=== PATIENT | female | born 1960 | race Caucasian/White ===

== ENCOUNTER 2017-06-10 06:06 | Outpatient (CLI) | payer MEDICARE, OTHER ==
[~2017-06-10] VITALS: Ht 172.7 cm; Wt 65.3 kg
[~2017-06-10 06:06] MED LIST: ALBU17AE23 IH; CEPH250T PO; CLIN300C3 PO; DIAZ10TA PO; FLUD0.1T7 PO; HYDR-3714 PO; MELO-195 PO; OMEP20CA6 PO; ONDAN4ODT PO; OXYC-12 PO; PARO20TA57 PO
[2017-06-10] MEDS ORDERED: PHEN-639 PO (14:26)
[2017-06-10] MEDS ORDERED: HYDR-3820 PO (14:26)
[2017-06-11] MEDS ORDERED: OMEP20CA12 PO (12:30)
== END 2017-06-10 14:52 ==
LOC: PREOP 06:06
PROVIDERS: ATTEND Internal Medicine
DX: Z01.818 Encounter for other preprocedural examination (principal); R13.10 Dysphagia, unspecified

== ENCOUNTER 2017-06-11 09:21 | Day surgery (SDC) | payer MEDICARE, OTHER ==
--- NOTE | 2017-06-09 19:29 | HISTORY AND PHYSICAL ---
DATE OF SERVICE: EGD HISTORY AND PHYSICAL HISTORY OF PRESENT ILLNESS: The patient is a 56-year-old white female seen on 06/09/2017 for evaluation of multiple medical issues. She reports that she has been having dysphagia pointing to the lower precordial area where predominantly solids get stuck. She has associated odynophagia with this and is not having difficulty with liquids. She takes an occasional ibuprofen for CMC arthritis, right worse than left and has also noted some right shoulder pain without any antecedent trauma. She denies weight loss and has noted no melena or bright red blood per rectum. She does have bowel urgency with no recent episodes of incontinence with no long-standing irritable bowel syndrome. Her right shoulder has been bothering her for a little over 2 weeks without any known trauma. It is worse with arm abduction and internal rotation. She reports that she has significant difficulty using her right hand for several days at a time for flare of pain at the level of the CMC joint. She has known osteoarthritis at this location. PHYSICAL EXAMINATION: GENERAL: Reveals a well kempt white female, who did not appear to be in acute distress. VITAL SIGNS: Her blood pressure was 100/56, which is her norm; weight was up 2.2 pounds, 149.2. CHEST: Clear. CARDIOVASCULAR: Revealed a regular rate and rhythm without murmur, S3 or S4. MUSCULOSKELETAL: She has no evidence for right shoulder swelling. There is some mild subdeltoid pain to palpation. No erythema or warmth noted. She has pain when she gets to 80 degrees of arm abduction on the right and with minimal internal rotation, she has discomfort as well. She has crepitus and some swelling over the right CMC and to a lesser extent the left. There is no evidence for effusion or erythema. No other areas of tender joints are noted on hand or wrist evaluation. ABDOMEN: Soft, supple without mass, organomegaly or tenderness. EXTREMITIES: Reveal no cyanosis, clubbing or edema. ASSESSMENT AND PLAN: 1. For further evaluation of dysphagia, she was set up for EGD evaluation this Wednesday. 2. Right rotator cuff tendinitis, most likely. 3. Right CMC arthritis, significantly limiting activities. Tylenol for now recommended and referral to Dr. Gorman for this as well as her rotator cuff tendinitis versus small tear. These issues were discussed with the patient in evaluation and answering her questions, 25 minutes [id number] care time spent today. This did not include the staff time, an extra 10 to 15 minutes setting up EGD for this Wednesday. Job ID: [id number] DocumentID: [id number] Dictated Date: 06/09/2017 17:38:20 Animal Treatment Investigator Date: 06/09/2017 18:10:03 Dictated By: ADE ARVIZU MD
[~2017-06-11] VITALS: Ht 172.7 cm; Wt 65.3 kg
[~2017-06-11 09:21] MED LIST changes: +HYDR-3820 PO; +PHEN-639 PO
[2017-06-11] MEDS ORDERED: LACTATED RINGERS 1,000 ML IV STA (09:44)
[2017-06-11] MEDS ORDERED: HURRICAINE EXT TUBE (BENZOCAINE) XX PRN (09:45)
[2017-06-11] MEDS ORDERED: LIDOCAINE JELLY 2% (XYLOCAINE) 5 ML TUBE MM PRN (09:45)
[2017-06-11] MEDS ORDERED: LACTATED RINGERS 1,000 ML IV ONE ×2 (09:57→09:59)
[2017-06-11] MEDS ORDERED: D5 LR IV SOLUTION 1,000 ML IV SCH (10:00)
--- OUTSIDE RECORDS SUMMARY | 2017-06-11 10:03 | XMS REPORT | Continuity of Care Document ---
Author Author [facility] Organization [facility] Address Unknown Phone Unavailable Allergies Active Description Code Type Severity Reaction Onset Reported/Identified Relationship to Patient Clinical Status Yes aspirin [id number] Drug Allergy Mild N/A 07/06/2009 Yes [id number] (SULFA (SULFONAMIDE ANTIBIOTICS)) [id number] (SULFA (SULFONAMIDE ANTIBIOTICS)) Mild N/A 07/06/2009 Yes Penicillins [id number] Drug Allergy Mild N/A 07/06/2009 Yes pseudoephedrine [id number] Drug Allergy Mild N/A 07/06/2009 Medications There is no data. Problems Date Dx Coded Attending Type Code Diagnosis Diagnosed By 12/27/2010 Ot 873.42 12/27/2010 Ot E000.8 12/27/2010 Ot E849.6 12/27/2010 Ot E917.9 11/05/2012 TANNA MADSEN DO Ot 682.9 CELLULITIS NOS 11/05/2012 TANNA MADSEN DO Ot 729.5 PAIN IN LIMB 08/30/2014 Ot 780.2 08/30/2014 Ot 786.50 08/30/2014 Ot 496 08/30/2014 ADE ARVIZU MD Ot V76.12 09/26/2014 ADE ARVIZU MD Ot V76.12 01/15/2017 ADE ARVIZU MD Ot V76.12 OTH SCREEN MAMMO-MALIGN NEOPLASM OF PORSCHE 01/15/2017 ADE ARVIZU MD Ot V76.12 OTH SCREEN MAMMO-MALIGN NEOPLASM OF PORSCHE 02/08/2017 ADE ARVIZU MD Ot G40.909 EPILEPSY, UNSP, NOT INTRACTABLE, WITHOUT 02/08/2017 ADE ARVIZU MD Ot Z85.41 PERSONAL HISTORY OF MALIGNANT NEOPLASM O 02/08/2017 ADE ARVIZU MD Ot Z85.42 PERSONAL HISTORY OF MALIGNANT NEOPLASM O 02/08/2017 ADE ARVIZU MD Ot Z85.43 PERSONAL HISTORY OF MALIGNANT NEOPLASM O Procedures There is no data. Results There is no data. Encounters ACCT No. Visit Date/Time Discharge Status Pt. Type Provider Facility Loc./Unit Complaint [id number] 01/15/2017 14:34:00 01/15/2017 23:59:59 CLS Outpatient ADE ARVIZU MD [facility] RAD GENERALIZED SEIZURE [id number] 08/30/2014 13:34:00 08/30/2014 23:59:59 CLS Outpatient ADE ARVIZU MD [facility] RAD SCREENING [id number] 07/13/2013 11:26:00 07/13/2013 23:59:59 CLS Outpatient ADE ARVIZU MD [facility] RAD SCREENING [id number] 11/04/2012 21:12:00 11/05/2012 01:39:00 DIS Emergency TANNA MADSEN DO [facility] ER RT ARM PAIN,SWELLING [id number] 06/11/2017 10:45:00 PEN Preadmit ADE ARVIZU MD [facility] ENDO DYSPHAGIA [id number] 06/10/2017 06:06:00 ACT Outpatient ADE ARVIZU MD [facility] PREOP EGD [id number] 08/30/2014 13:33:00 Document Registration [id number] 08/30/2014 13:33:00 Document Registration [id number] 12/27/2010 00:25:00 Document Registration [id number] 08/28/2009 07:55:00 Document Registration [email or web address] 08/30/2014 13:34:42 ACT Document Registration
[2017-06-11] MEDS ORDERED: MIDAZOLAM 2 MG/2 ML (VERSED) VIAL ONE (11:10)
[2017-06-11] MEDS ORDERED: proPOfol 200 MG/20 ML (DIPRIVAN) VIAL IV ONE (11:10)
[2017-06-11] MEDS ORDERED: LIDOCAINE JELLY 2% (XYLOCAINE) 5 ML TUBE ONE (11:21)
[2017-06-11] MEDS ORDERED: HURRICAINE EXT TUBE (BENZOCAINE) ONE (11:38)
[2017-06-11 12:00] VITALS: BP 85/56
--- NOTE | 2017-06-11 12:10 | Pre-Op Note & Conscious Sedat ---
Pre-Operative Progress Note H&P Reviewed The H&P was reviewed, patient examined and no changes noted. Date H&P Reviewed: Jun 11, 2017 Time H&P Reviewed: 11:00 Conscious Sedation Pre-Proced ASA Class: 2 Airway Mallampati Classification: ([place] appropriate class) I. II. III, IV Lungs Heart ASA score ASA 1: a normal healthy patient ASA 2: a patient with a mild systemic disease (mid diabetes, controlled hypertension, obesity ASA 3: a patient with a severe systemic disease that limits activity (angina , COPD, prior Myocardial infarction) ASA 4: a patient with an incapacitating disease that is a constant threat to life (CHF, renal failure) ASA 5: a moribund patient not expected to survive 24 hrs. (ruptured aneurysm) ASA 6: a declared brain patient whose organs are being harvested. For emergent operations, add the letter E after the classification Grade 2 Sedation Plan: Analgesia, Amnesia, Plan communicated to team members, Discussed options with patient/fam, Discussed risks with patient/fam Note The patient is an appropriate candidate to undergo the planned procedure, sedation, and anesthesia. The patient immediately re-assessed prior to indication. ADE ARVIZU MD Jun 11, 2017 12:10
[2017-06-11] MEDS ORDERED: OMEP20CA12 PO (12:30)
[2017-06-11 12:35] VITALS: BP 112/67
[2017-06-11 12:37] VITALS: BP 112/67
--- NOTE | 2017-06-11 13:52 | Anesthesia-General Post-Op ---
MAC Patient Condition Mental Status/LOC: Same as Preop Cardiovascular: Satisfactory Nausea/Vomiting: Absent Respiratory: Satisfactory Pain: Controlled Complications: Absent Post Op Complications Complications None Follow Up Care/Instructions Patient Instructions None needed. Anesthesiology Discharge Order Discharge Order Patient is doing well, no complaints, stable vital signs, no apparent adverse anesthesia problems. No complications reported per nursing. NAYELI KOWALSKI CRNA Jun 11, 2017 13:52
--- NOTE | 2017-06-11 15:20 | OPERATIVE REPORT ---
DATE OF SERVICE: 06/11/2017 ESOPHAGOGASTRODUODENOSCOPY SUMMARY DESCRIPTION OF PROCEDURE: The patient was placed in left lateral decubitus position. The endoscope was inserted in the oral cavity and under direct visualization the esophagus was intubated. The endoscope was passed down the esophagus through the stomach and second portion of the duodenum. Careful inspection was made as the endoscope was withdrawn. The patient did require Diprivan due to significant history of anxiety and reports of hyperactive gag reflex. FINDINGS: The posterior pharynx, arytenoid aperture and true and false vocal folds were unremarkable. No erythema was noted. The proximal and mid esophagus were unremarkable. There was evidence for a large hiatal hernia with one shallow ulceration noted at the Z line involving about 15% of the circumference. A biopsy was obtained. No overt evidence to suggest Knight's change and no stricturing was noted. The cardia, fundus, antrum, pylorus, pyloric channel, duodenal bulb and second portion of duodenum were unremarkable. ASSESSMENT: Wayne grade A erosive esophagitis was present with a large hiatal hernia. No other abnormalities were noted. We will initiate omeprazole 20 mg p.o. daily and I will have her keep her regular office followup appointment in several months. Job ID: [id number] DocumentID: [id number] Dictated Date: 06/11/2017 12:23:01 Display Director Date: 06/11/2017 15:20:10 Dictated By: ADE ARVIZU MD
== END 2017-06-11 12:38 | disposition home or self-care (01) ==
LOC: ENDO 09:21
PROVIDERS: ATTEND Internal Medicine
DX: K20.8 Other esophagitis (principal); K44.9 Diaphragmatic hernia without obstruction or gangrene; J44.9 Chronic obstructive pulmonary disease, unspecified; J45.909 Unspecified asthma, uncomplicated; Z72.0 Tobacco use

== ENCOUNTER → 2017-09-10 | Outpatient (CLI) | payer MEDICARE, OTHER ==
[~2017-09-10] MED LIST changes: +OMEP20CA12 PO
--- NOTE | 2017-09-10 11:40 | Diagnostic Imaging Report ---
INDICATION: Pain. 3 views were obtained FINDINGS: There is an oblique fracture through the proximal phalanx of the right fifth toe. There is no other fracture or dislocation. Soft tissues are unremarkable. IMPRESSION: Oblique fracture of the proximal phalanx of the right fifth toe with minimal displacement. Dictated by: Dictated on workstation # [id number]
== END ==
LOC: RAD 10:32
PROVIDERS: ATTEND Internal Medicine
DX: S92.911A Unspecified fracture of right toe(s), initial encounter for closed fracture (principal)
CPT/HCPCS: 73630

== ENCOUNTER → 2018-01-06 | Outpatient (CLI) | payer MEDICARE, OTHER ==
[2018-01-06 14:17] LABS: BASOPHILS % (AUTO) 0 % (0-10); EOSINOPHILS # (AUTO) 0.1 10^3/uL (0.0-0.3); EOSINOPHILS % (AUTO) 2 % (0-10); HEMATOCRIT 38 % (35-52); HEMOGLOBIN 13.1 G/DL (11.5-16.0); LYMPHOCYTES # (AUTO) 2.3 X 10^3 (1.0-4.0); LYMPHOCYTES % (AUTO) 48 % (12-44); MEAN CORPUSCULAR HEMOGLOBIN 32 PG (25-34); MEAN CORPUSCULAR HGB CONC 35 G/DL (32-36); MEAN CORPUSCULAR VOLUME 91 FL (80-99); MEAN PLATELET VOLUME 8.7 FL (7.4-10.4); MONOCYTES # (AUTO) 0.3 X 10^3 (0.0-1.0); MONOCYTES % (AUTO) 7 % (0-12); NEUTROPHILS % (AUTO) 43 % (42-75); PLATELET COUNT 193 10^3/uL (130-400); RED BLOOD COUNT 4.15 10^6/uL (4.35-5.85); RED CELL DISTRIBUTION WIDTH 12.9 % (10.0-14.5); WHITE BLOOD COUNT 4.7 10^3/uL (4.3-11.0)
[2018-01-06 14:45] LABS: ALANINE AMINOTRANSFERASE 13 U/L (0-55); ALBUMIN 4.3 GM/DL (3.2-4.5); ALKALINE PHOSPHATASE 61 U/L (40-136); BILIRUBIN,TOTAL 0.5 MG/DL (0.1-1.0); BUN/CREATININE RATIO 19; CALCIUM 8.9 MG/DL (8.5-10.1); CARBON DIOXIDE 25 MMOL/L (21-32); CHLORIDE 108 MMOL/L (98-107); CREATININE SERUM 0.84 MG/DL (0.60-1.30); GFR ESTIMATED > 60; GLUCOSE 89 MG/DL (70-105); POTASSIUM 4.1 MMOL/L (3.6-5.0); SODIUM 140 MMOL/L (135-145); TOTAL PROTEIN 6.9 GM/DL (6.4-8.2)
--- NOTE | 2018-01-06 18:09 | Diagnostic Imaging Report ---
INDICATION: Chest heaviness and shortness of breath. TIME OF EXAM: 03:13 p.m. COMPARISON: Comparison is made with prior chest from 12/17/2009. FINDINGS: The lungs are hyperinflated consistent with COPD. The heart size is normal. No infiltrate, effusion, or pneumothorax is identified. IMPRESSION: COPD. No acute abnormality is detected. Dictated by: Dictated on workstation # [id number]
== END ==
LOC: RAD 13:52
PROVIDERS: ATTEND Internal Medicine
DX: J44.9 Chronic obstructive pulmonary disease, unspecified (principal); R07.89 Other chest pain; R05 Cough; R04.2 Hemoptysis
CPT/HCPCS: 36415; 71046; 80053; 85025; 85379

== ENCOUNTER → 2018-03-09 | Outpatient (CLI) | payer MEDICARE, OTHER | LOC: LAB 14:10 | PROVIDERS: ATTEND Internal Medicine | DX: M79.89 Other specified soft tissue disorders (principal); Z86.718 Personal history of other venous thrombosis and embolism | CPT/HCPCS: 36415; 85379 ==

== ENCOUNTER → 2019-07-24 | Outpatient (CLI) | payer MEDICARE, OTHER ==
[~2019-07-24] VITALS: Ht 175 cm; Wt 67.0 kg
[~2019-07-24] MED LIST changes: +ACHYD1T PO; +CATHETER FLUSH 10 ML SYR IV PRN; -HYDR-3820 PO; -OMEP20CA12 PO; +OMEP20CA18 PO
[2019-07-24 09:29] VITALS: BP 152/70
[2019-07-24 09:48] VITALS: BP 142/89
--- NOTE | 2019-07-24 14:15 | STRESS TEST ---
DATE OF SERVICE: 07/24/2019 EXERCISE MYOVIEW STRESS TEST REPORT REFERRING PHYSICIAN: Dr. Rishi Arthur. Baseline heart rate is 52. Baseline blood pressure 152/70. Baseline EKG is sinus rhythm with no ischemic changes. In summary, the patient was injected with 10.11 mCi of technetium-99 Myoview and the resting images were obtained. Then, the patient started exercising with a baseline heart rate, blood pressure and EKG mentioned above. The patient was able to exercise for 10 minutes 45 seconds on standard Niall protocol. With peak exercise level, EKG was showing minimal nondiagnostic changes. Blood pressure was 207/88. During recovery, heart rate and blood pressure returned to baseline. EKG returned to baseline. The resting and stress images were reviewed and compared in the short axis, horizontal long axis, and vertical long axis views. Review of the images showed good radiotracer uptake with no significant ischemia or infarction. SSS is 2, SDS 2, TID value of 1.1. On the gated images, the left ventricle appeared to be normal size with normal contractility. Calculated ejection fraction 69%. CONCLUSION: 1. The patient was able to exercise for 10 minutes 45 seconds on standard Niall protocol, total of 12.1 METS achieving 88% of maximum expected heart rate. 2. Hypertensive response to exercise with peak blood pressure 207/88 returned to baseline during recovery. 3. Minimal nondiagnostic EKG changes with exercise returned to baseline during recovery. 4. No ischemia or infarction on SPECT images. 5. Normal left ventricular size with normal contractility. Calculated ejection fraction 69%. Job ID: [id number] DocumentID: [id number] Dictated Date: 07/24/2019 11:45:59 Insurance Agency Owner Date: 07/24/2019 14:14:23 Dictated By: GERRI ISIDRO MD
== END ==
LOC: CARD 07:58
PROVIDERS: ATTEND Internal Medicine Cardiovascular Disease
DX: I10 Essential (primary) hypertension (principal); R00.2 Palpitations; R07.9 Chest pain, unspecified; Z72.0 Tobacco use
CPT/HCPCS: 78452; 93017

== ENCOUNTER → 2019-07-25 | Outpatient (CLI) | payer MEDICARE, OTHER ==
[~2019-07-25] MED LIST changes: -CATHETER FLUSH 10 ML SYR IV PRN
== END ==
LOC: CARD 12:13
PROVIDERS: ATTEND Internal Medicine Cardiovascular Disease
DX: I10 Essential (primary) hypertension (principal); R00.2 Palpitations; R07.9 Chest pain, unspecified; Z72.0 Tobacco use
CPT/HCPCS: 93306

== ENCOUNTER → 2019-08-03 | Outpatient (CLI) | payer MEDICARE, OTHER ==
--- NOTE | 2019-08-02 13:07 | NUR ---
PT SCHEDULED FOR PFT; LOOKED UP FILE TO SEE IF ALTERNATIVE NUMBER TO CONTACT PT TO SCREEN COVID QUESTIONS AND TO REMIND OF APPOINTMENT.
[~2019-08-03] MED LIST changes: +RT-ALBUTEROL SULF 2.5 MG/3 ML PRE-MIX VIAL INH ONE; +RT-ALBUTEROL SULF 2.5 MG/3 ML PRE-MIX VIAL ONE
== END ==
LOC: RT 12:39
PROVIDERS: ATTEND Internal Medicine
DX: R06.02 Shortness of breath (principal)
CPT/HCPCS: 94060; 94726; 94729

== ENCOUNTER → 2020-05-02 | Outpatient (CLI) | payer MEDICARE, OTHER ==
[~2020-05-02] MED LIST changes: -RT-ALBUTEROL SULF 2.5 MG/3 ML PRE-MIX VIAL INH ONE; -RT-ALBUTEROL SULF 2.5 MG/3 ML PRE-MIX VIAL ONE
== END ==
LOC: LABNPT 09:42
PROVIDERS: ATTEND Internal Medicine
DX: Z20.822 Contact with and (suspected) exposure to COVID-19 (principal)
CPT/HCPCS: 87635

== ENCOUNTER → 2020-06-18 | Outpatient (CLI) | payer MEDICARE, OTHER | LOC: LABNPT 06:53 | PROVIDERS: ATTEND Internal Medicine | DX: Z20.822 Contact with and (suspected) exposure to COVID-19 (principal) | CPT/HCPCS: 87635 ==

== ENCOUNTER → 2020-06-19 | Outpatient (CLI) | payer MEDICARE, OTHER ==
--- NOTE | 2020-06-19 12:39 | Diagnostic Imaging Report ---
INDICATION: Cough, fatigue. COMPARISON: 01/06/2018. FINDINGS: Frontal and lateral views of the chest demonstrate normal heart size and pulmonary vascularity. The lungs are clear. There are no signs of infiltrate, pleural effusions or pneumothoraces. The visualized osseous structures show no acute abnormalities. IMPRESSION: 1. No acute process. No signs of infiltrates, effusions or pneumothoraces. Dictated by: Dictated on workstation # [id number]
== END ==
LOC: RAD 12:18
PROVIDERS: ATTEND Nurse Practitioner Family
DX: R05 Cough (principal); R53.83 Other fatigue
CPT/HCPCS: 71046

== ENCOUNTER 2020-09-01 15:10 | Emergency (ER) | payer MEDICARE, OTHER ==
[~2020-09-01] VITALS: Ht 173 cm; Wt 63.6 kg
--- NOTE | 2020-09-01 15:44 | ED Integumentary General ---
General Chief Complaint: Skin/Wound Problems Stated Complaint: TICK BITE Nursing Triage Note: Reports having a 'tick' on her on 08/30 [address]. feels she was able to get the tick out but the area has not stopped hurting. Source: patient Exam Limitations: no limitations History of Present Illness Date Seen by Provider: Sep 01, 2020 Time Seen by Provider: 15:25 Initial Comments Patient is a 59-year-old female who presents to the emergency department today with a chief complaint of posterior neck pain, muscle spasms just inferior to the area of a tick bite in her posterior scalp. Patient states that she felt a tick bite her on Wednesday, 08/30. She states that she was unable to identify the tick after pulling it off. She states progressively after that days she has had a little bit of generalized malaise and some body aches. She states specifically she has some neck pain when turning her head. She just does not feel quite right. She denies any fevers or rashes. No nausea or vomiting. She has chronic diarrhea. Patient was concerned that the area needed incised and drained or otherwise addressed. All other review of systems reviewed and negative except as stated above. Timing/Duration: other (2 days ago) Severity: moderate Location: scalp Possible Cause: insect bite (Tick bite) Associated Symptoms: other (Mild generalized malaise, body aches) Allergies and Home Medications Allergies Coded Allergies: Penicillins (Unverified Allergy, Mild, 07/06/09) Sulfa (Sulfonamide Antibiotics) (Verified Allergy, Mild, 06/10/17) aspirin (Unverified Allergy, Mild, 07/06/09) pseudoephedrine (Unverified Allergy, Mild, 07/06/09) Home Medications Doxycycline Hyclate 100 Mg Tablet.dr, 100 MG PO BID Prescribed by: BETO PABLO on 09/01/20 1546 Hydrocodone Bit/Acetaminophen 1 Each Tablet, 1 EACH PO PRN, (Reported) Omeprazole 20 Mg Capsule.dr, 20 MG PO DAILY Prescribed by: ADE ARVIZU on 06/11/17 1230 Phenazopyridine HCl 100 Mg Tablet, 100 MG PO PRN, (Reported) Patient Home Medication List Home Medication List Reviewed: Yes Review of Systems Review of Systems Constitutional: see HPI EENTM: no symptoms reported Respiratory: no symptoms reported Cardiovascular: no symptoms reported Gastrointestinal: no symptoms reported Genitourinary: no symptoms reported Musculoskeletal: joint pain Skin: other (Raised area in the posterior scalp that feels a little "lumpy") All Other Systems Reviewed Negative Unless Noted: Yes Past Ztavhlm-Zqqnln-Qaadnk Hx Patient Social History Alcohol Use: Denies Use Drug of Choice: THC Type Used: Cigarettes Recent Infectious Disease Expo: No Recent Hopitalizations: No Seasonal Allergies Seasonal Allergies: No Past Medical History Surgeries: Yes (SKIN CANCER REMOVAL, 50 OR MORE SURGERIES/PROCEDURES) Respiratory: Yes Asthma, Pulmonary Embolism, COPD Cardiac: Yes (HAS CODED 3 TIMES OR MORE, HYPOTENSION) Neurological: Yes Reproductive Disorders: No Sexually Transmitted Disease: No HIV/AIDS: No Gastrointestinal: Yes Gastroesophageal Reflux, Chronic Constipation, Irritable Bowel Musculoskeletal: Yes (CHRONIC GENERALIZED PAIN) Endocrine: Yes Adrenal Disease, Lupus Cancer: Yes ([employer] [place] --S/P SURGERY, CHEMO AND RADIATION 1982) Skin, Cervical, Ovarian, Uterine, Vaginal Psychosocial: Yes (SEVERE FROM MEDICAL ISSUES) Sleep Difficulties, Anxiety, PTSD, Depression Integumentary: Yes (CHRONIC SORES ALL OVER BODY. ) Blood Disorders: Yes Adverse Reaction/Blood Tranf: No Physical Exam Vital Signs Vital Signs - First Documented 09/01/20 15:22 Temp 37.0 Pulse 68 Resp 18 B/P (MAP) 131/73 (92) Pulse Ox 98 O2 Delivery Simple Mask Capillary Refill : Less Than 3 Seconds General Appearance: WD/WN, no apparent distress HEENT: PERRL/EOMI Neck: full range of motion, supple, normal inspection Cardiovascular: regular rate, rhythm Respiratory: lungs clear, normal breath sounds, no respiratory distress Gastrointestinal: non tender, soft Extremities: normal range of motion, non-tender Neurologic/Psychiatric: alert, normal mood/affect, oriented x 3 Skin: normal color, warm/dry Skin Problem Character: other (Palpable raised lesion to the right posterior occipital scalp, nonfluctuant but does feel slightly nodular to palpation. No drainage is noted. There is some slight darkish discoloration to the scalp at the area of the tick bite) Progress/Results/Core Measures Results/Orders My Orders Orders - BETO PABLO MD Tick Panel With Lyme Eia (09/01/20 15:38) Vital Signs/I&O 09/01/20 15:22 Temp 37.0 Pulse 68 Resp 18 B/P (MAP) 131/73 (92) Pulse Ox 98 O2 Delivery Simple Mask Blood Pressure Mean: 92 Progress Progress Note : Time: 15:43 Progress Note Discussed with the patient getting a tick panel today and starting her on doxycycline. Pending tick panel the patient can then discontinue the antibiotics if her tick panel is negative. I recommended supportive care with NSAIDs, washing the area frequently and continued monitoring of symptoms. The patient verbalized understanding. All questions are sought and answered. The patient is nontoxic in appearance, looks well. She is stable for discharge. Departure Impression Primary Impression: Tick bite Qualified Codes: W57.XXXA - Bitten or stung by nonvenomous insect and other nonvenomous arthropods, initial encounter Disposition: HOME, SELF-CARE Condition: Stable Departure-Patient Inst. Decision time for Depature: 15:44 Referrals: ADE ARVIZU MD (PCP/Family) Primary Care Physician Patient Instructions: Insect Bites and Stings Add. Discharge Instructions: Keep the area clean and dry. Try not to scratch at the area. Monitor yourself for symptoms such as worsening body aches, fever, rash. Start taking the doxycycline 100 mg twice daily today. We have obtained a tick panel today. You can call in 2 to 3 days to find out the results of this tick panel, if the tick panel is negative you can stop taking the doxycycline. Scripts Doxycycline Hyclate (Doxycycline Hyclate) 100 Mg Tablet. 100 MG PO BID, #20 TAB Prov: BETO PABLO MD 09/01/20 BETO PABLO MD Sep 01, 2020 15:44
[2020-09-01] MEDS ORDERED: DOXY-227 PO (15:46)
[2020-09-01 16:38] VITALS: BP 131/73
== END 2020-09-01 16:38 | disposition home or self-care (01) ==
LOC: EDUNIT# 15:10 → ER 15:12
DX: S00.06XA Insect bite (nonvenomous) of scalp, initial encounter (principal); J44.9 Chronic obstructive pulmonary disease, unspecified; K21.9 Gastro-esophageal reflux disease without esophagitis; G89.29 Other chronic pain; M54.2 Cervicalgia; Z79.899 Other long term (current) drug therapy; Z79.891 Long term (current) use of opiate analgesic; W57.XXXA Bitten or stung by nonvenomous insect and other nonvenomous arthropods, initial encounter
CPT/HCPCS: 36415; 86618; 86666; 86668; 86757

== ENCOUNTER 2021-04-18 09:54 | Emergency (ER) | payer MEDICARE, OTHER ==
[~2021-04-18] VITALS: Ht 172.7 cm; Wt 65.8 kg
[~2021-04-18 09:54] MED LIST changes: +DOXY-227 PO
--- NOTE | 2021-04-18 10:47 | ED Fall/Injury ---
General Chief Complaint: Trauma-Non Activation Stated Complaint: R LEG PAIN/R SHOULDER PAIN Source: patient Exam Limitations: no limitations History of Present Illness Date Seen by Provider: Apr 18, 2021 Time Seen by Provider: 10:44 Initial Comments To ER with reports of a fall this morning at about 2:30 AM while she was taking her puppy outside. She tripped over it. She landed on her right side striking her right shoulder. Minimal pain, she went back to bed and thought she would be better when she awakened this morning. However she awakened with increased pain. She complains of some pain to the right hip, right knee, right ankle. Occurred: this morning Severity: moderate Injuries/Pain Location: upper extremity, lower extremity Context: tripped Loss of Consciousness: no loss of consciousness Associated Symptoms (Fall): Denies Symptoms Allergies and Home Medications Allergies Coded Allergies: Penicillins (Unverified Allergy, Mild, 07/06/09) Sulfa (Sulfonamide Antibiotics) (Verified Allergy, Mild, 06/10/17) aspirin (Unverified Allergy, Mild, 07/06/09) pseudoephedrine (Unverified Allergy, Mild, 07/06/09) Patient Home Medication List Home Medication List Reviewed: Yes Doxycycline Hyclate (Doxycycline Hyclate) 100 Mg Tablet., 100 MG PO BID Prescribed by: BETO PABLO on 09/01/20 1546 Hydrocodone Bit/Acetaminophen (HYDROcodone/APAP 10/325 TABLET) 1 Each Tablet, 1 EACH PO PRN, (Reported) Entered as Reported by: MARK WRIGHT on 06/10/17 1426 Hydrocodone/Acetaminophen (Hydrocodone-Acetamin 5-325 mg) 1 Each Tablet, 1 TAB PO Q4H PRN for PAIN-MODERATE (5-7) Prescribed by: VICK SADLER on 04/18/21 1144 Omeprazole (Omeprazole) 20 Mg Capsule., 20 MG PO DAILY Prescribed by: ADE ARVIZU on 06/11/17 1230 Phenazopyridine HCl (Pyridium) 100 Mg Tablet, 100 MG PO PRN, (Reported) Entered as Reported by: MARK WRIGHT on 06/10/17 1426 Review of Systems Review of Systems Constitutional: see HPI Eyes: No Symptoms Reported Ears, Nose, Mouth, Throat: no symptoms reported Respiratory: no symptoms reported Cardiovascular: no symptoms reported Genitourinary: no symptoms reported Musculoskeletal: see HPI Skin: no symptoms reported Psychiatric/Neurological: No Symptoms Reported Past Putpbcr-Agvlhp-Xjqlkb Hx Patient Social History Tobacco Use?: Yes Tobacco type used: Cigarettes Smoking Status: Current Everyday Smoker Smokeless Tobacco Frequency: Never a User Use of E-Cig and/or Vaping William: Never a User Substance use?: Yes Substance type: Marijuana Substance frequency: Daily Alcohol Use?: No Pt feels they are or have been: No Seasonal Allergies Seasonal Allergies: No Past Medical History Surgeries: Yes (SKIN CANCER REMOVAL, 50 OR MORE SURGERIES/PROCEDURES) Respiratory: Yes Asthma, Pulmonary Embolism, COPD Cardiac: Yes (HAS CODED 3 TIMES OR MORE, HYPOTENSION) Neurological: Yes Reproductive Disorders: No Sexually Transmitted Disease: No HIV/AIDS: No Gastrointestinal: Yes Gastroesophageal Reflux, Chronic Constipation, Irritable Bowel Musculoskeletal: Yes (CHRONIC GENERALIZED PAIN) Endocrine: Yes Adrenal Disease, Lupus Cancer: Yes (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 ) Blood Disorders: Yes Adverse Reaction/Blood Tranf: No Physical Exam Vital Signs Capillary Refill : Height, Weight, BMI Height: 5'8.00" Weight: 144lbs. 0.0oz. [id number]; 21.00 BMI Method:Stated General Appearance: WD/WN, no apparent distress HEENT: PERRL/EOMI, normal ENT inspection Neck: non-tender, full range of motion Respiratory: no respiratory distress, no accessory muscle use Gastrointestinal: normal bowel sounds, non tender, soft Extremities: other (Limited range of motion secondary to pain without evidence of swelling or ecchymosis to the shoulder knee and ankle. Right dorsalis pedis pulse is +2 in strength.) Neurologic/Psychiatric: alert, normal mood/affect, oriented x 3 Skin: normal color, warm/dry Beena Coma Score Best Eye Response: (4) Open Spontaneously Best Verbal Response: (5) Oriented Best Motor Response: (6) Obeys Commands Harold Total: 15 Progress/Results/Core Measures Results/Orders My Orders Orders - VICK SADLER APRN Shoulder, Right, 3 Views (04/18/21 10:42) Pelvis With Right Hip 2-3views (04/18/21 10:42) Knee, Right, 3 Views (04/18/21 10:42) Ankle, Right, 3 Views (04/18/21 10:42) Ketorolac Injection (Toradol Injection) (04/18/21 11:45) Medications Given in ED Current Medications Medications Dose Ordered Sig/Jack Route Start Time Stop Time Status Last Admin Dose Admin Ketorolac Tromethamine 60 mg ONCE ONCE IM 04/18/21 11:45 04/18/21 11:46 DC 04/18/21 11:53 60 MG Departure Communication (Admissions) Family Conversation She states that she has a walker and a wheelchair at home from previous illnesses. Reports a long medical history, states that she 3 times during one of her pregnancies during delivery. She then a few days later twice again. She states that she is doing very well now. She is scheduled to follow-up with orthopedics at [place]. I will give her a prescription for some additional pain medication and will give her a shot of Toradol here and a walking boot. NAME: TANNA WEBBER [facility] REC#: [id number] PT STATUS: REG ER : 1960 PHYSICIAN: VICK SADLER APRN ADMIT DATE: 04/18/21/ER Draft Date of Exam:04/18/21 ANKLE, RIGHT, 3 VIEWS Indication: Fall and right ankle pain. TIME OF EXAM: 1100 a.m. 3 views of the right ankle were obtained. Alignment is normal. Ankle mortise is well maintained. Talar dome is smooth. There is a curvilinear density adjacent to the lateral process of the talus. A small fracture at this location is suspected. No other fractures are seen. IMPRESSION: Probable fracture at the tip of the lateral process of the talus best seen on the AP view. No other significant abnormality is seen. Dictated on workstation # [id number] Dict: 04/18/21 1108 Trans: 04/18/21 1113 [facility] [id number] Interpreted by: NEELA MENDEZ MD Electronically signed by: Impression Primary Impression: Knee sprain Additional Impressions: Shoulder contusion Ankle fracture Disposition: 01 HOME, SELF-CARE Condition: Stable Departure-Patient Inst. Decision time for Depature: 10:47 Referrals: ADE ARVIZU MD (PCP/Family) Primary Care Physician NAYELI OROZCO MD, TERRY D MD ZAFUTA, MICHAEL P MD Patient Instructions: Sprain (DC), Shoulder Pain (DC) Add. Discharge Instructions: 1. Return to ER for any concerns. Follow-up with your doctor next week. Tylenol and ibuprofen for pain control. Use crutches when walking. Follow-up with orthopedics. Wear the walking boot until released by orthopedics. All discharge instructions reviewed with patient and/or family. Voiced und erstanding. Scripts Hydrocodone/Acetaminophen (Hydrocodone-Acetamin 5-325 mg) 1 Each Tablet 1 TAB PO Q4H PRN for PAIN-MODERATE (5-7), #14 TAB Prov: VICK SADLER APRN 04/18/21 VICK SADLER APRN Apr 18, 2021 10:47
--- NOTE | 2021-04-18 11:11 | Diagnostic Imaging Report ---
INDICATION: Fall and right knee pain. TIME OF EXAM: 10:59 a.m. FINDINGS: Three views of the right knee were obtained. Joint spaces are well maintained. There is some spurring along the medial compartment. Articular surfaces are smooth. No fracture, dislocation, or effusion is seen. IMPRESSION: No acute bony abnormality is detected. Dictated by: Dictated on workstation # [id number]
--- NOTE | 2021-04-18 11:13 | Diagnostic Imaging Report ---
INDICATION: Fall. TIME OF EXAM: 10:58 AM AP view of the pelvis and two views of the right hip were obtained. Femoral acetabular alignment is normal. The joint spaces are well-maintained. The femoral head and neck are intact. Rami are intact. No fractures are seen. There are numerous clips in the pelvis. IMPRESSION: No acute bony abnormality is detected. Dictated by: Dictated on workstation # [id number]
--- NOTE | 2021-04-18 11:14 | Diagnostic Imaging Report ---
Indication: Fall and right ankle pain. TIME OF EXAM: 1100 a.m. 3 views of the right ankle were obtained. Alignment is normal. Ankle mortise is well maintained. Talar dome is smooth. There is a curvilinear density adjacent to the lateral process of the talus. A small fracture at this location is suspected. No other fractures are seen. IMPRESSION: Probable fracture at the tip of the lateral process of the talus best seen on the AP view. No other significant abnormality is seen. Dictated by: Dictated on workstation # [id number]
--- NOTE | 2021-04-18 11:24 | Diagnostic Imaging Report ---
SHOULDER, RIGHT, 3 VIEWS. INDICATION: Right shoulder pain after a fall. COMPARISON: 03/11/2021. TECHNIQUE: Three views of the right shoulder. FINDINGS: No fracture or concerning focal osseous lesion. Glenohumeral and acromioclavicular joints are normal in alignment. Subacromial space is preserved. No abnormal soft tissue mineralizations. IMPRESSION: No acute osseous abnormality about the right shoulder. Dictated by: Dictated on workstation # [id number]
[2021-04-18] MEDS ORDERED: ACHD5005 PO (11:44)
[2021-04-18] MEDS ORDERED: KETOROLAC 60 MG/2 ML VIAL IM ONE (11:45)
[2021-04-18 12:00] VITALS: BP 126/73
== END 2021-04-18 12:00 | disposition home or self-care (01) ==
LOC: EDUNIT# 09:54 → ER 09:56
DX: S92.141A Displaced dome fracture of right talus, initial encounter for closed fracture (principal); S83.91XA Sprain of unspecified site of right knee, initial encounter; S40.011A Contusion of right shoulder, initial encounter; J44.9 Chronic obstructive pulmonary disease, unspecified; K21.9 Gastro-esophageal reflux disease without esophagitis; F17.210 Nicotine dependence, cigarettes, uncomplicated; Z79.899 Other long term (current) drug therapy; Z79.82 Long term (current) use of aspirin; W01.0XXA Fall on same level from slipping, tripping and stumbling without subsequent striking against object, initial encounter
CPT/HCPCS: 73030; 73562; 73610

== ENCOUNTER → 2021-12-29 | Outpatient (CLI) | payer MEDICARE, OTHER ==
[~2021-12-29] MED LIST changes: +ACHD5005 PO
--- NOTE | 2021-12-29 17:40 | Diagnostic Imaging Report ---
INDICATION: Lower respiratory infection EXAM: PA and lateral chest FINDINGS: The heart size and pulmonary vascularity are normal. Lungs are clear. There are no effusions or pneumothoraces. IMPRESSION: No acute abnormalities in the chest. Dictated by: Dictated on workstation # [id number]
== END ==
LOC: RAD 14:52
DX: J22 Unspecified acute lower respiratory infection (principal)
CPT/HCPCS: 71046

== ENCOUNTER → 2022-02-06 | Outpatient (CLI) | payer MEDICARE, OTHER ==
[~2022-02-06] VITALS: Ht 175.3 cm; Wt 66.4 kg
[~2022-02-06] MED LIST changes: +LORA-405 SL; +OPIUM
== END | disposition home or self-care (01) ==
LOC: PREOP 10:40
PROVIDERS: ATTEND Internal Medicine
DX: Z01.818 Encounter for other preprocedural examination (principal)

== ENCOUNTER 2022-02-13 09:28 | Day surgery (SDC) | payer MEDICARE, OTHER ==
--- NOTE | 2022-02-09 06:45 | HISTORY AND PHYSICAL ---
DATE OF SERVICE: 02/13/2022 PANENDOSCOPY HISTORY AND PHYSICAL DATE OF ADMISSION: HISTORY OF PRESENT ILLNESS: The is a 61-year-old white female, who presented complaining about a several-month history of worsening odynophagia with nausea. She has had epigastric pain associated with this. She takes some occasional ibuprofen, which is not new for her. She is an ongoing smoker with a [id number] smoking history. She felt that she had lost weight, but in review of our records, she was just down 1.6 pounds from three months ago and unchanged from earlier in the year. She denies melena or bright red blood per rectum. If she has even had a colonoscopy, it has been more than 10 years ago done for diagnostic purposes, but this is debatable. There is no record in the electronic medical record of colonoscopy, may have previous colonoscopy and she has not had work done elsewhere per her report. She does have history of irritable bowel syndrome, diarrhea predominance and reports that there has been more diarrhea. She occasionally will have fecal incontinence and has not noted bright red blood or melena. PHYSICAL EXAMINATION: GENERAL: Reveals a white female, who did not appear to be in acute distress. VITAL SIGNS: Blood pressure 120/70 and weight 146 pounds. HEENT: Unremarkable. Sclerae nonicteric. CHEST: Clear to auscultation. CARDIOVASCULAR: Reveals a regular rate and rhythm without murmur, S3 or S4. ABDOMEN: Abdominal evaluation reveals epigastric pain with some guarding and no rebound. No mass or organomegaly noted. Bowel sounds positive. EXTREMITIES: No cyanosis, clubbing or edema. IMPRESSION: For evaluation of odynophagia, epigastric pain, nausea and some recent weight loss, the patient is undergoing diagnostic EGD. PLAN: We will perform colonoscopy to follow for screening purposes. Prep instructions with Colyte were given and questions were answered. Job ID: [id number] DocumentID: [id number] Dictated Date: 02/05/2022 15:57:43 Customer Resolution Specialist Date: 02/05/2022 16:36:00 Dictated By: ADE ARVIZU MD
[2022-02-13] VITALS (7 sets, daily range): BP systolic 87–118; BP diastolic 53–85
[~2022-02-13] VITALS: Ht 175 cm; Wt 66.4 kg
[2022-02-13] MEDS ORDERED: LACTATED RINGERS 1,000 ML IV STA (09:46)
[2022-02-13] MEDS ORDERED: HURRICAINE EXT TUBE (BENZOCAINE) XX PRN (10:00)
--- NOTE | 2022-02-13 10:01 | Pre-Op Note & Conscious Sedat ---
Pre-Operative Progress Note Date H&P Reviewed: Feb 13, 2022 Time H&P Reviewed: 10:00 Pre-Op Diagnosis: diagnostic egd screening colon Conscious Sedation Pre-Proced ASA Score 2 For ASA 3 and 4: Consider anesthesia and medical clearance. Also, for patients with a history of failed moderate sedation consider anesthesia. Airway Lungs Heart ASA score ASA 1: a normal healthy patient ASA 2: a patient with a mild systemic disease (mid diabetes, controlled hypertension, obesity ASA 3: a patient with a severe systemic disease that limits activity (angina, COPD, prior Myocardial infarction) ASA 4: a patient with an incapacitating disease that is a constant threat to life (CHF, renal failure) ASA 5: a moribund patient not expected to survive 24 hrs. (ruptured aneurysm) ASA 6: a declared brain- patient whose organs are being harvested. For emergent operations, add the letter E after the classification Mallampati Classification Grade 2 Sedation Plan Analgesia, Amnesia, Plan communicated to team members, Discussed options with patient/fam, Discussed risks with patient/fam The patient is an appropriate candidate to undergo the planned procedure, sedation, and anesthesia. The patient immediately re-assessed prior to indication. ADE ARVIZU MD Feb 13, 2022 10:01
[2022-02-13] MEDS ORDERED: MIDAZOLAM 2 MG/2 ML (VERSED) VIAL ONE ×2 (11:14→11:16)
[2022-02-13] MEDS ORDERED: PROPOFOL INJECTION 50 ML IV ONE (11:14)
[2022-02-13] MEDS ORDERED: fentaNYL INJ 100 MCG/2 ML AMP ONE (12:04)
--- NOTE | 2022-02-13 12:16 | Progress Note-Post Operative ---
Post-Procedure Note Physician (s)/Senior Informatica Developer (s) Physician ADE ARVIZU MD Pre-Procedure Diagnosis Pre-Procedure Diagnosis: diagnostic egd screening colon Post-Procedure Diagnosis Post-operative diagnosis: The endoscope was inserted into the oral cavity and under direct visualization the esophagus is intubated. The endoscope was passed down the esophagus to the stomach and the second portion of the duodenum. A careful inspection was made as the endoscope was withdrawn. Findings: The posterior pharynx epiglottis arytenoid aperture and true and false vocal folds were unremarkable. The proximal mid and distal esophagus are unremarkable except for approximate 2 cm hiatal hernia with several centimeters of the stomach being present above the level of the diaphragm. There was no evidence to suggest Knight's change and no evidence for erosive esophagitis. The cardia fundus antrum pylorus pyloric channel duodenal bulb and second portion duodenum were unremarkable. Assessment: Proximal 2 cm hiatal hernia was present without evidence for erosive esophagitis. This was an otherwise normal EGD. We then proceeded with colonoscopy. Prior to undergoing colonoscopy digital rectal evaluation was performed. Anal sphincter tone was normal and the perianal reflexes intact. No abnormalities are noted on digital inspection of the anal canal or distal rectal vault. The colonoscope was then inserted into the rectum and under direct visualization advanced to the cecum. The cecum and proximal ascending colon were obstructed by stool patient reports she had difficulty keeping her prep down and we did give her a enema prior to the procedure. The remaining aspects of the colon were well visualized. Findings: There are no evidence for internal or external hemorrhoids in the rectum sigmoid colon descending colon and splenic flexure unremarkable. Present in the distal transverse colon was approximately 1-1/2 a centimeter pedunculated polyp on a short stalk it was snared and then retrieval there was fragmentation of friable polyp tissue there was no evidence for ulceration. There was some remaining polyp tissue at the base post snare this was grasped with a biopsy forceps with cauterization and tissue from the base was submitted for histopathology as well. There was minimal bleeding. The remainder the transverse colon splenic flexure and visualized portion of the ascending colon were unremarkable. Assessment: 1 proximal 1.5 cm pedunculated polyp was snared there was some remaining polyp tissue at the base of cauterization was performed. due to stool there is suboptimal visualization of the proximal ascending colon and cecum. As long as there is no evidence for dysplasia we will advocate follow-up colonoscopy in no longer than 1 year. ADE ARVIZU MD Feb 13, 2022 12:16
--- NOTE | 2022-02-13 13:26 | Anesthesia-General Post-Op ---
MAC Patient Condition Mental Status/LOC: Same as Preop Cardiovascular: Satisfactory Nausea/Vomiting: Absent Respiratory: Satisfactory Pain: Controlled Complications: Absent Post Op Complications Complications None Follow Up Care/Instructions Patient Instructions None needed. Anesthesiology Discharge Order Discharge Order Patient is doing well, no complaints, stable vital signs, no apparent adverse anesthesia problems. No complications reported per nursing. JUDI ROME CRNA Feb 13, 2022 13:26
== END 2022-02-13 13:00 | disposition home or self-care (01) ==
LOC: ENDO 09:28
PROVIDERS: ATTEND Internal Medicine
DX: Z12.11 Encounter for screening for malignant neoplasm of colon (principal); K44.9 Diaphragmatic hernia without obstruction or gangrene; D12.3 Benign neoplasm of transverse colon; Z28.310 Unvaccinated for COVID-19

== ENCOUNTER → 2022-04-08 | Outpatient (CLI) | payer MEDICARE, OTHER ==
--- NOTE | 2022-04-08 16:29 | Diagnostic Imaging Report ---
INDICATION: Injury to the left 4th digit. COMPARISON: None FINDINGS: 3 radiographic views of the left 4th finger were obtained. There is no acute fracture or dislocation. Moderate osteoarthritic changes are noted at the distal interphalangeal joint space. No unexpected radiopaque foreign bodies are seen. IMPRESSION: 1. 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 Dictated by: Dictated on workstation # [id number]
== END ==
LOC: RAD 14:44
PROVIDERS: ATTEND Internal Medicine
DX: M19.042 Primary osteoarthritis, left hand (principal)
CPT/HCPCS: 73140

== ENCOUNTER → 2022-09-10 | Outpatient (CLI) | payer MEDICARE, OTHER ==
--- NOTE | 2022-09-10 16:59 | Diagnostic Imaging Report ---
EXAMINATION: Left hand radiograph. EXAM DATE: 09/10/2022, 4:04 p.m. COMPARISON: 04/08/2022. HISTORY: Left first digit pain after injury. TECHNIQUE: Three views. FINDINGS: Surgical changes of the second digit distal interphalangeal joint from fusion. No other acute fracture, dislocation, or destructive osseous process. There is mild joint space narrowing seen within the interphalangeal joints. Degenerative changes are present within the first carpometacarpal joint. The soft tissues are normal. IMPRESSION: 1. No acute osseous abnormality of the left hand. 2. Degenerative changes within the interphalangeal joints and first carpometacarpal joint. Internal fixation and fusion of the second digit distal interphalangeal joint. Dictated by: Dictated on workstation # [id number]
== END ==
LOC: RAD 15:45
PROVIDERS: ATTEND Internal Medicine
DX: M19.042 Primary osteoarthritis, left hand (principal); S69.82XA Other specified injuries of left wrist, hand and finger(s), initial encounter
CPT/HCPCS: 73130